=== PATIENT | female | born 1965 | race Caucasian/White ===

== ENCOUNTER 2019-11-03 13:28 | Emergency (ER) | payer SELFPAY, OTHER ==
[2019-11-03] MEDS ORDERED: IPRATROPIUM BROM 0.5MG/2.5ML ONE (14:46)
[2019-11-03] MEDS ORDERED: predniSONE 20 MG TAB ONE (14:47)
[2019-11-03] MEDS ORDERED: ALBUTEROL 2.5 MG/3 ML NEB SOL ONE ×2 (14:47)
[2019-11-03 15:13] LABS: Protime INR 0.92
[2019-11-03 15:17] LABS: Absolute Lymphocytes (CBC) 1.8 K/uL (0.7-4.9); Hematocrit 39.7 % (36.0-45.0); Lymphocytes % 18.7 % (15.3-44.8); MPV 8.5 fL (7.6-11.3); RBC Red Blood Cell Count 4.18 M/uL (3.86-4.86)
[2019-11-03 15:18] LABS: ALT/SGPT 15 U/L (12-78); AST/SGOT 9 U/L (15-37); Albumin 3.7 g/dL (3.4-5.0); Alkaline Phosphatase 52 U/L (45-117); BUN Blood Urea Nitrogen 6 mg/dL (7-18); Bicarbonate 26 mmol/L (21-32); Bilirubin Direct < 0.1 mg/dL (0-0.2); Bilirubin Total 0.3 mg/dL (0.2-1.0); Glucose Level 99 mg/dL (74-106); NT PRO-BNP 114 pg/mL (<125); Potassium 3.9 mmol/L (3.5-5.1); Protein, Total 7.2 g/dL (6.4-8.2); Sodium Level 138 mmol/L (136-145); Troponin (Emerg Dept Use Only) < 0.02 ng/mL (0.0-0.045)
--- NOTE | 2019-11-03 17:03 | EDPHYS ---
Physician Documentation [facility] Name: Fatuma Cadena Age: 54 yrs Sex: Female : 1965 Arrival Date: 11/03/2019 Time: 13:30 Bed 17 Private MD: ED Physician Sudhir Jackson HPI: 11/02 14:10 This 54 yrs old Female presents to ER via Ambulatory with complaints of cp Allergy Symptoms, Dizziness, Breathing Difficulty. 14:10 The patient or guardian reports cough, with no sputum. cp 14:10 Onset: The symptoms/episode began/occurred 3 day(s) ago. Severity of symptoms: in the emergency department the symptoms are unchanged, despite home interventions. Associated signs and symptoms: Pertinent positives: chest pain, sore throat, shortness of breath, Pertinent negatives: diarrhea, fever, vomiting. Patient reports initial symptoms started with nasal congestion, ear fullness 1 week ago. Denies any fevers. Patient reports she works in [employer]. 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 - Social history:: Smoking status: Patient reports the use of cigarette tobacco products, smokes one-half pack cigarettes per day. ROS: 14:15 Constitutional: Negative for body aches, chills, fever, poor PO intake. cp 14:15 Eyes: Negative for injury, pain, redness, and discharge. cp 14:15 ENT: Positive for sinus congestion, sore throat, Negative for drainage from ear(s), ear pain, difficulty swallowing, difficulty handling secretions. 14:15 Respiratory: Positive for cough, with no reported sputum, shortness of breath. 14:15 Abdomen/GI: Negative for abdominal pain, vomiting, diarrhea, constipation. 14:15 Back: Negative for pain at rest, pain with movement. 14:15 : Negative for urinary symptoms. 14:15 Skin: Negative for rash. 14:15 Neuro: Positive for dizziness, Negative for altered mental status, headache, syncope, weakness. 14:15 All other systems are negative. Exam: 14:22 Constitutional: The patient appears in no acute distress, alert, awake, cp non-diaphoretic, non-toxic, well developed, well nourished. 14:22 Head/Face: Normocephalic, atraumatic. cp 14:22 Eyes: Periorbital structures: appear normal, Conjunctiva: normal, no exudate, no injection, Lids and lashes: appear normal, bilaterally. 14:22 ENT: External ear(s): are unremarkable, Ear canal(s): are normal, clear, TM's: dullness, bilaterally, Nose: is normal, Mouth: Lips: moist, Oral mucosa: pink and intact, moist, Posterior pharynx: is normal, airway is patent, no erythema, no exudate. 14:22 Neck: ROM/movement: is normal, is supple, no meningismus, no nuchal rigidity, Lymph nodes: no appreciated lymphadenopathy. 14:22 Chest/axilla: Inspection: normal, Palpation: is normal, no crepitus, no tenderness. 14:22 Cardiovascular: Rate: normal, Rhythm: regular, Heart sounds: murmur, not appreciated, Edema: is not appreciated, JVD: is not appreciated. 14:22 Respiratory: the patient does not display signs of respiratory distress, Respirations: normal, no use of accessory muscles, no retractions, labored breathing, is not present, Breath sounds: decreased breath sounds, that are mild, throughout, stridor, is not appreciated, wheezing: that is mild, is heard diffusely. 14:22 Abdomen/GI: Inspection: abdomen appears normal, Palpation: abdomen is soft and non-tender, in all quadrants. 14:22 Back: pain, is absent, ROM is normal. 14:22 Skin: no rash present. 14:22 Neuro: Orientation: to person, place \T\ time. Mentation: is normal, Cerebellar function: is grossly normal, Motor: moves all fours, strength is normal, Sensation: is normal. 15:00 ECG was reviewed by the Attending Physician. cp Vital Signs: 13:31 BP 126 / 70; Pulse 83; Resp 17 S; Temp 98.1(TE); Pulse Ox 99% on R/A; Weight 63.5 kg ca1 (R); Height 5 ft. 4 in. (162.56 cm) (R); Pain 0/10; 15:10 BP 129 / 68; Pulse 69; Resp 16; Pulse Ox 100% ; lt1 16:27 BP 105 / 61; Pulse 82; Resp 19; Pulse Ox 100% ; lt1 17:30 BP 106 / 56; Pulse 90; Resp 19; Pulse Ox 97% on R/A; vc 13:31 Body Mass Index 24.03 (63.50 kg, 162.56 cm) ca1 MDM: 13:52 Patient medically screened. cp 14:20 Differential Diagnosis: Bronchitis Influenza Asthma Exacerbation Viral Syndrome cp Pneumonia Other COPD. 16:45 Data reviewed: vital signs, nurses notes, lab test result(s), EKG, radiologic studies, cp plain films. Test interpretation: by ED physician or midlevel provider: ECG, chest xray negative for infiltrates and focal pneumonia. 17:00 Counseling: I had a detailed discussion with the patient and/or guardian regarding: the cp historical points, exam findings, and any diagnostic results supporting the discharge/admit diagnosis, lab results, radiology results, the need for outpatient follow up, a family practitioner, to return to the emergency department if symptoms worsen or persist or if there are any questions or concerns that arise at home. 17:00 Response to treatment: the patient's symptoms have markedly improved after treatment, cp and as a result, I will discharge patient, test for coronavirus and recommend 14 day quarantine. 11/02 14:03 Order name: Influenza Screen (a \T\ B); Complete Time: 15:09 11/02 15:09 Interpretation: Reviewed. 11/02 14:03 Order name: Strep; Complete Time: 15:09 11/02 15:09 Interpretation: Reviewed. 11/02 14:03 Order name: CORONAVIRUS (COVID-19) 11/02 14:03 Order name: Basic Metabolic Panel; Complete Time: 15:49 11/02 15:50 Interpretation: Normal except: BUN 6. 11/02 14:03 Order name: CBC with Diff; Complete Time: 15:49 11/02 15:50 Interpretation: Reviewed. 11/02 14:03 Order name: LFT's; Complete Time: 15:49 11/02 15:50 Interpretation: Normal except: AST 9. 11/02 14:03 Order name: Magnesium; Complete Time: 15:49 11/02 14:03 Order name: NT PRO-BNP; Complete Time: 15:49 cp 11/02 14:03 Order name: PT-INR; Complete Time: 15:49 cp 11/02 14:03 Order name: Troponin (emerg Dept Use Only); Complete Time: 15:49 cp 11/02 15:50 Interpretation: Within normal limits. cp 11/02 14:03 Order name: XRAY Chest Pa And Lat (2 Views) cp 11/02 15:08 Order name: Throat Culture EDMS 11/02 14:03 Order name: EKG; Complete Time: 14:04 cp 11/02 14:03 Order name: Cardiac monitoring; Complete Time: 15:02 cp 11/02 14:03 Order name: EKG - Nurse/Tech; Complete Time: 15:02 cp 11/02 14:03 Order name: IV Saline Lock; Complete Time: 15:01 cp 11/02 14:03 Order name: Labs collected and sent; Complete Time: 15: cp 11/02 14:03 Order name: O2 Per Protocol; Complete Time: 15: cp 11/02 14:03 Order name: O2 Sat Monitoring; Complete Time: 15:01 cp EC:00 Rate is 67 beats/min. Rhythm is regular. SD interval is normal. QRS interval is normal. cp QT interval is normal. T waves are Inverted in lead aVL. Interpreted by me. Reviewed by me. Administered Medications: 15:02 Drug: predniSONE 60 mg Route: PO; vc 17:33 Follow up: Response: No adverse reaction; Marked relief of symptoms vc 15:03 Drug: Albuterol 2.5 mg Route: Inhalation; vc 15:03 Drug: AtroVENT Aerosol 0.5 mg Route: Inhalation; vc Disposition: 11/03 07:08 Co-signature as Attending Physician, Sudhir Jackson MD I agree with the assessment and kdr plan of care. Disposition: 11/03/19 17:01 Discharged to Home. Impression: Cough, Other chest pain, Shortness of breath. - Condition is Stable. - Discharge Instructions: Form - Excuse from Work, School, or Physical Activity, Nonspecific Chest Pain, Shortness of Breath, Aspirin and Your Heart, Cough, Adult. - Prescriptions for Prednisone 20 mg Oral Tablet - take 2 tablet by ORAL route once daily for 5 days; 10 tablet. Albuterol Sulfate 90 mcg/actuation - inhale 1-2 puff by INHALATION route every 4-6 hours; 1 Inhaler. - Medication Reconciliation Form, Thank You Letter, Antibiotic Education, Prescription Opioid Use form. - Follow up: Emergency Department; When: As needed; Reason: Worsening of condition. - Problem is new. - Symptoms have improved. Signatures: Dispatcher [employer] EDMS Sudhir Jackson MD MD [facility] Kishor Matos PA PA cp Sarah Starr RN RN [facility] Gabi Pacheco RN RN vc Corrections: (The following items were deleted from the chart) 11/02 18:00 17:01 11/03/2019 17:01 Discharged to Home. Impression: Cough; Other chest pain; vc Shortness of breath. Condition is Stable. Forms are Medication Reconciliation Form, Thank You Letter, Antibiotic Education, Prescription Opioid Use. Follow up: Emergency Department; When: As needed; Reason: Worsening of condition. Problem is new. Symptoms have improved. cp
--- NOTE | 2019-11-03 17:03 | ER ---
Nurse's Notes [facility] Name: Fatuma Cadena Age: 54 yrs Sex: Female : 1965 Arrival Date: 11/03/2019 Time: 13:30 Bed 17 Private MD: Diagnosis: Cough;Other chest pain;Shortness of breath Presentation: 11/02 13:31 Chief complaint: Patient states: Nasal congestion, cough x 1 week. Denies fever. "Was ca1 driving to work when I got dizzy. And for about 3 days now, I feel tightness in my chest". Coronavirus screen: Patient reports a cough. Patient denies shortness of breath or difficulty breathing. Patient denies measured and/or subjective temperature greater than 100.4F. Patient denies travel on a cruise ship or to a country the [facility] currently lists as an affected area. Patient denies contact with known and/or suspected case of COVID-19. Ebola Screen: Patient negative for fever greater than or equal to 101.5 degrees Fahrenheit, and additional compatible Ebola Virus Disease symptoms Patient denies exposure to infectious person. Patient denies travel to an Ebola-affected area in the 21 days before illness onset. No symptoms or risks identified at this time. Initial Sepsis Screen: Does the patient meet any 2 criteria? No. Patient's initial sepsis screen is negative. Does the patient have a suspected source of infection? No. Patient's initial sepsis screen is negative. Risk Assessment: Do you want to hurt yourself or someone else? Patient reports no desire to harm self or others. Onset of symptoms was November 03, 2019. 13:31 Method Of Arrival: Ambulatory ca1 13:31 Acuity: CARMEN 3 ca1 13:40 Note Pt works at a [employer]. ca1 14:02 Acuity: CARMEN 3 iw Triage Assessment: 14:06 General: Appears in no apparent distress. comfortable, Behavior is calm, cooperative, ls4 appropriate for age. 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 - Social history:: Smoking status: Patient reports the use of cigarette tobacco products, smokes one-half pack cigarettes per day. Screenin:57 Abuse screen: Denies threats or abuse. Denies injuries from another. Nutritional ls4 screening: No deficits noted. Tuberculosis screening: No symptoms or risk factors identified. Fall Risk None identified. Assessment: 14:00 Pain: Denies pain. Respiratory: Airway is patent Respiratory effort is even, unlabored, vc Breath sounds are clear. 14:00 General: Appears in no apparent distress. uncomfortable, Behavior is calm, cooperative, vc appropriate for age. Neuro: Level of Consciousness is awake, alert, obeys commands, Oriented to person, place, time, situation, Appropriate for age. Cardiovascular: Capillary refill < 3 seconds Patient's skin is warm and dry. GI: No signs and/or symptoms were reported involving the gastrointestinal system. : No signs and/or symptoms were reported regarding the genitourinary system. Derm: Skin temperature is warm. 15:00 Reassessment: Patient and/or family updated on plan of care and expected duration. Pain vc level reassessed. Patient is alert, oriented x 3, equal unlabored respirations, skin warm/dry/pink. 16:00 Reassessment: No changes from previously documented assessment. Patient and/or family vc updated on plan of care and expected duration. Pain level reassessed. Patient is alert, oriented x 3, equal unlabored respirations, skin warm/dry/pink. 17:00 Reassessment: No changes from previously documented assessment. Patient and/or family vc updated on plan of care and expected duration. Pain level reassessed. Patient is alert, oriented x 3, equal unlabored respirations, skin warm/dry/pink. Patient states feeling better. Patient states symptoms have improved. Vital Signs: 13:31 BP 126 / 70; Pulse 83; Resp 17 S; Temp 98.1(TE); Pulse Ox 99% on R/A; Weight 63.5 kg ca1 (R); Height 5 ft. 4 in. (162.56 cm) (R); Pain 0/10; 15:10 BP 129 / 68; Pulse 69; Resp 16; Pulse Ox 100% ; lt1 16:27 BP 105 / 61; Pulse 82; Resp 19; Pulse Ox 100% ; lt1 17:30 BP 106 / 56; Pulse 90; Resp 19; Pulse Ox 97% on R/A; vc 13:31 Body Mass Index 24.03 (63.50 kg, 162.56 cm) ca1 ED Course: 13:30 Patient arrived in ED. ag5 13:30 Patient has correct armband on for positive identification. Placed in gown. Pulse ox vc on. NIBP on. 13:36 Triage completed. ca1 13:37 Arm band placed on. ca1 13:47 Kishor Matos PA is PHCP. cp 13:47 Sudhir Jackson MD is Attending Physician. cp 14:31 Gabi Pacheco, RN is Primary Nurse. vc 14:31 Primary Nurse role handed off by Gabi Pacheco, RN ls4 14:31 Hannah Ferraro, JOEY is Primary Nurse. ls4 15:00 Missed attempt(s): 22 gauge in right antecubital area. lt1 15:00 Initial lab(s) drawn, by me, sent to lab. EKG done, by ED staff, reviewed by Kishor Matos lt1 PA Flu and/or RSV swab sent to lab. Strep swab sent to lab. Inserted saline lock: 22 gauge in left antecubital area, using aseptic technique. 15:01 Strep Sent. lt1 15:01 Influenza Screen (a \\T\\ B) Sent. lt1 15:01 CORONAVIRUS (COVID-19) Sent. lt1 15:02 Basic Metabolic Panel Sent. lt1 15:02 CBC with Diff Sent. lt1 15:02 LFT's Sent. lt1 15:02 Magnesium Sent. lt1 15:03 NT PRO-BNP Sent. lt1 15:03 PT-INR Sent. lt1 15:03 Troponin (emerg Dept Use Only) Sent. lt1 16:04 XRAY Chest Pa And Lat (2 Views) In Process Unspecified. EDMS 16:08 Health Dept notified COVID test sent to lab/ PUI # [id number]/ lab notified. eb 16:28 Door closed. Lights dimmed. Warm blanket given. Verbal reassurance given. lt1 17:57 No provider procedures requiring assistance completed. IV discontinued, intact, vc bleeding controlled, No redness/swelling at site. Pressure dressing applied. Administered Medications: 15:02 Drug: predniSONE 60 mg Route: PO; vc 17:33 Follow up: Response: No adverse reaction; Marked relief of symptoms vc 15:03 Drug: Albuterol 2.5 mg Route: Inhalation; vc 15:03 Drug: AtroVENT Aerosol 0.5 mg Route: Inhalation; vc Outcome: 17:01 Discharge ordered by . cp 17:57 Discharged to home ambulatory. vc 17:57 Condition: good 17:57 Discharge instructions given to patient, Instructed on discharge instructions, follow up and referral plans. medication usage, self quarantine until results of COVID-19. 18:00 Patient left the ED. vc Signatures: Dispatcher [employer] EDMS Jackie Mills RN RN iw Kishor Matos PA PA Carey Rowe Lisa, RN RN ls4 Sarah Starr RN RN ca1 Belinda Herrera ag5 Isabelle Gonzalez lt1 Gabi Pacheco RN RN vc Corrections: (The following items were deleted from the chart) 13:38 13:31 Pulse 83bpm; Resp 17bpm; Spontaneous; Pulse Ox 99% RA; Temp 98.1F Temporal; 63.5 ca1 kg Reported; Height 5 ft. 4 in. Reported; BMI: 24.0; Pain 0/10; ca1 14:04 13:31 Acuity: CARMEN 4 ca1 ca1
--- NOTE | 2019-11-03 17:38 | RAD REPORT ---
EXAM DESCRIPTION: RAD - Chest Pa And Lat (2 Views) - 11/03/2019 4:05 pm CLINICAL HISTORY: COUGH Chest pain. COMPARISON: No comparisons FINDINGS: The lungs are clear. The heart is normal in size. No displaced fractures. IMPRESSION: No acute or concerning finding suspected.
[2019-11-03 18:46] VITALS: TEMP 97.9
[2019-11-03 18:47] VITALS: BP 146/102; O2SAT 100
--- NOTE | 2019-11-04 11:23 | EKG ---
Test Date: 2019-11-03 Test Time: 14:22:37 [place] Technician: [employer] MEASUREMENT RESULTS: Intervals: Rate: 67 DC: 150 QRSD: 86 QT: 414 QTc: 437 [place]: P: 84 DC: 150 QRS: 74 T: 67 INTERPRETIVE STATEMENTS: Normal sinus rhythm Normal ECG No previous ECG available for comparison Electronically Signed On 11-04-19 11:20:27 CDT by Carl Burden
== END 2019-11-03 18:00 | disposition home or self-care (01) ==
LOC: ER 13:28
DX: R07.89 Other chest pain (principal); R06.02 Shortness of breath; F17.210 Nicotine dependence, cigarettes, uncomplicated; Z88.2 Allergy status to sulfonamides
CPT/HCPCS: 36415; 71046; 80048; 80076; 83735; 83880; 84484; 85025; 85610; 87070; 87081; 87804; 93005; 99284; J7512; U0001

== ENCOUNTER 2020-04-23 21:45 | Emergency (ER) | payer SELFPAY, OTHER ==
[2020-04-23 23:18] LABS: Absolute Lymphocytes (CBC) 2.5 K/uL (0.7-4.9); Basophils % 0.9 % (0-1.3); Hematocrit 37.1 % (36.0-45.0); Lymphocytes % 24.1 % (15.3-44.8); MPV 8.7 fL (7.6-11.3); RBC Red Blood Cell Count 4.01 M/uL (3.86-4.86)
[2020-04-23 23:29] LABS: ALT/SGPT 29 U/L (12-78); AST/SGOT 20 U/L (15-37); Albumin 4.1 g/dL (3.4-5.0); Alkaline Phosphatase 60 U/L (45-117); BUN Blood Urea Nitrogen 5 mg/dL (7-18); Bicarbonate 23 mmol/L (21-32); Bilirubin Direct 0.1 mg/dL (0-0.2); Bilirubin Total 0.4 mg/dL (0.2-1.0); CKMB Creatine Kinase MB < 1.0 ng/mL (0.3-3.6); Creatine Phosphokinase 82 U/L (26-192); Glucose Level 82 mg/dL (74-106); Lipase 143 U/L (73-393); NT PRO-BNP 43 pg/mL (<125); Potassium 3.8 mmol/L (3.5-5.1); Protein, Total 7.5 g/dL (6.4-8.2); Sodium Level 136 mmol/L (136-145); Troponin (Emerg Dept Use Only) < 0.02 ng/mL (0.0-0.045)
[2020-04-23 23:35] LABS: Protime INR 0.95
[2020-04-23] MEDS ORDERED: ACETAMINOPHEN 500 MG TAB ONE (23:36)
[2020-04-23] MEDS ORDERED: NA CHLORIDE 0.9% 1,000 ML ONE (23:45)
[2020-04-23] MEDS ORDERED: IPRATROPIUM BROM 0.5MG/2.5ML ONE ×2 (23:50→23:56)
[2020-04-23] MEDS ORDERED: ALBUTEROL 2.5 MG/3 ML NEB SOL ONE (23:50)
[2020-04-24 00:25] LABS: Urine Blood TRACE (NEG); Urine Glucose NEGATIVE (NEG); Urine Protein NEGATIVE (NEG); Urine Specific Gravity 1.005 (1.005-1.030); Urine pH 5.5 (5.0-7.0)
--- NOTE | 2020-04-24 00:43 | EDPHYS ---
Physician Documentation [facility] Name: Fatuma Cadena Age: 55 yrs Sex: Female : 1965 Arrival Date: 04/23/2020 Time: 21:47 Bed 6 Private MD: ED Physician Raymon Meza HPI: 04/23 23:00 This 55 yrs old Female presents to ER via Ambulatory with complaints of Sinus mh7 Congestion, Breathing Difficulty, Nausea/Vomiting. 23:00 The patient has shortness of breath during heavy activity. Onset: The symptoms/episode mh7 began/occurred today. Duration: The symptoms are intermittent, with no pattern. The patient's shortness of breath is aggravated by coughing, exertion, is alleviated by nothing. Associated signs and symptoms:. 23:02 Associated signs and symptoms: Pertinent positives: non-productive cough, nausea, mh7 vomiting, sore throat, sinus pain, Pertinent negatives: chest pain, diaphoresis, dizziness, fever, hemoptysis, loss of consciousness, numbness in extremities, visual changes. Severity of symptoms: At their worst the symptoms were moderate today, in the emergency department the symptoms have improved moderately. Patient states that she started to have sinus pain to right cheek and sore throat yesterday. Today she also started to have a non productive cough with some SOB. She also had an episode of nausea and vomiting. She denies any fever, chest pain, abdominal pain, dizziness, numbness/tingling, weakness, sick contacts, or recent travel. 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 - Social history:: Smoking status: Patient denies any tobacco usage or history of. ROS: 23:02 Constitutional: Negative for fever, chills, and weight loss, Eyes: Negative for injury, mh7 pain, redness, and discharge, Neck: Negative for injury, pain, and swelling, Cardiovascular: Negative for chest pain, palpitations, and edema, Back: Negative for injury and pain, : Negative for injury, bleeding, discharge, and swelling, MS/Extremity: Negative for injury and deformity, Skin: Negative for injury, rash, and discoloration, Neuro: Negative for headache, weakness, numbness, tingling, and seizure, Psych: Negative for depression, anxiety, suicide ideation, homicidal ideation, and hallucinations, Allergy/Immunology: Negative for hives, rash, and allergies, Endocrine: Negative for neck swelling, polydipsia, polyuria, polyphagia, and marked weight changes, Hematologic/Lymphatic: Negative for swollen nodes, abnormal bleeding, and unusual bruising. Exam: 23:02 Constitutional: This is a well developed, well nourished patient who is awake, alert, mh7 and in no acute distress. 23:02 Eyes: Pupils equal round and reactive to light, extra-ocular motions intact. Lids and lashes normal. Conjunctiva and sclera are non-icteric and not injected. Cornea within normal limits. Periorbital areas with no swelling, redness, or edema. ENT: Nares patent. No nasal discharge, no septal abnormalities noted. Tympanic membranes are normal and external auditory canals are clear. Oropharynx with no redness, swelling, or masses, exudates, or evidence of obstruction, uvula midline. Mucous membranes moist. Neck: Trachea midline, no thyromegaly or masses palpated, and no cervical lymphadenopathy. Supple, full range of motion without nuchal rigidity, or vertebral point tenderness. No Meningismus. Chest/axilla: Normal chest wall appearance and motion. Nontender with no deformity. No lesions are appreciated. Cardiovascular: Regular rate and rhythm with a normal S1 and S2. No gallops, murmurs, or rubs. Normal PMI, no JVD. No pulse deficits. Respiratory: Lungs have equal breath sounds bilaterally, clear to auscultation and percussion. No rales, rhonchi or wheezes noted. No increased work of breathing, no retractions or nasal flaring. Abdomen/GI: Soft, non-tender, with normal bowel sounds. No distension or tympany. No guarding or rebound. No evidence of tenderness throughout. Back: No spinal tenderness. No costovertebral tenderness. Full range of motion. Skin: Warm, dry with normal turgor. Normal color with no rashes, no lesions, and no evidence of cellulitis. MS/ Extremity: Pulses equal, no cyanosis. Neurovascular intact. Full, normal range of motion. Neuro: Awake and alert, GCS 15, oriented to person, place, time, and situation. Cranial nerves II-XII grossly intact. Motor strength 5/5 in all extremities. Sensory grossly intact. Cerebellar exam normal. Normal gait. Psych: Awake, alert, with orientation to person, place and time. Behavior, mood, and affect are within normal limits. 23:02 Head/face: Sinus tenderness, that is moderate, is located over the right maxillary sinus and left maxillary sinus. 23:09 ECG was reviewed by the Attending Physician. [facility] Vital Signs: 21:58 BP 136 / 80; Pulse 76; Resp 18; Temp 98.1(O); Pulse Ox 100% on R/A; mw2 22:15 BP 135 / 77; Pulse 84; Resp 19; Pulse Ox 100% ; ea 23:30 BP 105 / 63; Pulse 65; Resp 18; Pulse Ox 98% on R/A; ea 04/24 00:38 BP 121 / 64; Pulse 90; Resp 18; Pulse Ox 100% ; ds4 00:43 BP 121 / 64; Pulse 90; Resp 18; Pulse Ox 99% ; ea MDM: 04/23 22:32 Patient medically screened. [facility] 04/24 00:40 Differential diagnosis: Anemia Anxiety Reaction asthma, Bronchitis CHF exacerbation, [facility] Chronic Obstructive Pulmonary Disease Myocardial Infarction pneumonia, Pneumothorax Psychogenic pulmonary edema, Pulmonary Embolism reactive airway disease. Data reviewed: vital signs, nurses notes, lab test result(s), cardiac enzymes, CBC, electrolytes, urinalysis, EKG, radiologic studies, plain films. Data interpreted: Pulse oximetry: on room air is 98 %. Interpretation: normal. Counseling: I had a detailed discussion with the patient and/or guardian regarding: the historical points, exam findings, and any diagnostic results supporting the discharge/admit diagnosis, lab results, radiology results, the need for outpatient follow up, to return to the emergency department if symptoms worsen or persist or if there are any questions or concerns that arise at home. Response to treatment: the patient's symptoms have resolved after treatment, the patient's blood pressure is in an acceptable range, mental status has returned to baseline, the patient no longer shows bradycardia, the patient is not short of breath, the patient is not tachycardic, the patient's pain is gone, the patient's temperature has normalized. 09/14 22:26 Order name: Blood Culture Adult (2) 04/23 22:26 Order name: BMP; Complete Time: 23:30 04/23 22:26 Order name: CBC with Diff; Complete Time: 23:25 04/23 22:26 Order name: Ckmb; Complete Time: 23:30 04/23 22:26 Order name: CPK; Complete Time: 23:30 04/23 22:26 Order name: D-Dimer; Complete Time: 23:45 04/23 22:26 Order name: Hepatic Function; Complete Time: 23:30 04/23 22:26 Order name: Lipase; Complete Time: 23:30 04/23 22:26 Order name: Magnesium; Complete Time: :30 04/23 22:26 Order name: NT PRO-BNP; Complete Time: 23:30 04/23 22:26 Order name: PT-INR; Complete Time: 23:45 04/23 22:26 Order name: Ptt, Activated; Complete Time: :45 04/23 22:26 Order name: Troponin (emerg Dept Use Only); Complete Time: 23:30 04/23 22:32 Order name: Influenza Screen (a \T\ B); Complete Time: 00:16 [facility] 04/23 22:26 Order name: XRAY CXR (1 view) 04/23 22:26 Order name: EKG; Complete Time: 22:27 04/23 22:26 Order name: Cardiac monitoring; Complete Time: 23:10 04/23 22:26 Order name: EKG - Nurse/Tech; Complete Time: 23:10 04/23 22:26 Order name: IV Saline Lock; Complete Time: 23:10 04/23 22:26 Order name: Labs collected and sent; Complete Time: 23:10 04/23 22:26 Order name: O2 Per Protocol; Complete Time: 22:53 04/23 22:26 Order name: O2 Sat Monitoring; Complete Time: 22:53 04/23 22:32 Order name: Rapid Strep; Complete Time: 00:16 [facility] 04/23 23:09 Order name: Urine Dipstick-Ancillary (obtain specimen); Complete Time: 23:49 04/23 23:51 Order name: Urine Dipstick--Ancillary (enter results); Complete Time: 00:27 ds4 04/24 00:15 Order name: Throat Culture EDMS EC/14 23:09 Rate is 68 beats/min. Rhythm is regular, Normal Sinus Rhythm. QRS [place] is Normal. [place] mh7 interval is normal. QRS interval is normal. QT interval is normal. No Q waves. T waves are Normal. No ST changes noted. Clinical impression: Normal ECG. Administered Medications: 23:28 Drug: Tylenol 1000 mg Route: PO; ll2 23:28 Follow up: Response: No adverse reaction ll2 23:53 CANCELLED (Duplicate Order): AtroVENT Aerosol 0.5 mg Inhalation once ll2 23:53 Drug: Albuterol - atroVENT (3:1) (2.5 mg - 0.5 mg) 3 ml Route: Nebulizer; ll2 23:53 Follow up: Response: No adverse reaction ll2 Disposition: 04/24/20 00:42 Discharged to Home. Impression: Sinusitis, Bronchitis. - Condition is Stable. - Discharge Instructions: Sinusitis, Adult, [id number], Acute Bronchitis, [id number]. - Prescriptions for Zithromax Z- Ganesh 250 mg Oral Tablet - take 1 tablet by ORAL route as directed for 5 days Day 1 - take two (2) tablets one time. Day 2, 3, 4 , 5 take one (1) tablet once daily.; 6 tablet. Prednisone 20 mg Oral Tablet - take 2 tablet by ORAL route once daily for 5 days; 10 tablet. Albuterol Sulfate 90 mcg/actuation - inhale 1-2 puff by INHALATION route every 4-6 hours; 1 Inhaler. - Medication Reconciliation Form, Thank You Letter, Antibiotic Education, Prescription Opioid Use form. - Follow up: Private Physician; When: 1 - 2 days; Reason: Worsening of condition, Recheck today's complaints, Continuance of care, Re-evaluation by your physician. - Problem is new. - Symptoms have improved. Signatures: Dispatcher [employer] EDWI Polo Vance RN RN Ayah Morales RN Purvi Gonzalez ea, RN RN 2 Raymon Meza MD MD 7 Corrections: (The following items were deleted from the chart) 23:53 23:52 AtroVENT Aerosol 0.5 mg Inhalation once ordered. ll2 ll2 04/24 00:57 00:42 04/24/2020 00:42 Discharged to Home. Impression: Sinusitis; Bronchitis. Condition ea is Stable. Forms are Medication Reconciliation Form, Thank You Letter, Antibiotic Education, Prescription Opioid Use. Follow up: Private Physician; When: 1 - 2 days; Reason: Worsening of condition, Recheck today's complaints, Continuance of care, Re-evaluation by your physician. Problem is new. Symptoms have improved. mh7
--- NOTE | 2020-04-24 00:43 | ER ---
Nurse's Notes [facility] Name: Fatuma Cadena Age: 55 yrs Sex: Female : 1965 Arrival Date: 04/23/2020 Time: 21:47 Bed 6 Private MD: Diagnosis: Sinusitis;Bronchitis Presentation: 04/23 22:08 Acuity: CARMEN 3 sg 22:29 Chief complaint: Patient states: see triage assessment. Coronavirus screen: Client ll2 denies travel out of the [place] in the last 14 days. congestion, cough unrelated to allergies, difficulty breathing, headache, shortness of breath, sore throat, vomiting. Ebola Screen: Patient negative for fever greater than or equal to 101.5 degrees Fahrenheit, and additional compatible Ebola Virus Disease symptoms. Initial Sepsis Screen: Does the patient meet any 2 criteria? No. Patient's initial sepsis screen is negative. Does the patient have a suspected source of infection? No. Patient's initial sepsis screen is negative. Risk Assessment: Do you want to hurt yourself or someone else? Patient reports no desire to harm self or others. Onset of symptoms was April 22, 2020. 22:29 Method Of Arrival: Ambulatory ll2 Triage Assessment: 22:23 General: Appears in no apparent distress. Behavior is calm, cooperative, appropriate ll2 for age. Pain: Complains of pain in right cheek Pain currently is 7 out of 10 on a pain scale. Quality of pain is described as pressure, Pain began 1 day ago. Is continuous. EENT: Reports nasal congestion pain sore throat and ears. Neuro: Level of Consciousness is awake, alert, obeys commands, Oriented to person, place, time, situation. Neuro: Reports dizziness. Cardiovascular: Capillary refill < 3 seconds Patient's skin is warm and dry. Respiratory: Reports shortness of breath cough that is Onset: The symptoms/episode began/occurred yesterday, the patient has moderate shortness of breath. GI: Reports nausea, vomiting, since since yesterday. : No signs and/or symptoms were reported regarding the genitourinary system. Derm: Skin is intact, is healthy with good turgor, Skin is dry, Skin is pink, warm \T\ dry. Skin temperature is warm. Musculoskeletal: Circulation, motion, and sensation intact. Range of motion: intact in all extremities. 22:26 General: pt states she works at [employer], none of her pts are covid ll2 positive currently. reports having heavy pressure in her sinus cavity and feeling like its in her lungs. states she has vomited once today, but feels nauseated currently. has mild pain in her throat and ears. . 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 - Social history:: Smoking status: Patient denies any tobacco usage or history of. Screenin:28 Abuse screen: Denies threats or abuse. Nutritional screening: No deficits noted. ll2 Tuberculosis screening: No symptoms or risk factors identified. 04/24 00:16 Fall Risk None identified. ea Assessment: 04/23 22:28 General: see triage assessment. Cardiovascular: Rhythm is regular. Respiratory: Airway ll2 is patent Respiratory effort is even, unlabored, Respiratory pattern is regular, symmetrical, 04/24 00:04 Reassessment: Patient and/or family updated on plan of care and expected duration. Pain ea level reassessed. Patient is alert, oriented x 3, equal unlabored respirations, skin warm/dry/pink. 00:56 Reassessment: Patient and/or family updated on plan of care and expected duration. Pain ea level reassessed. Patient is alert, oriented x 3, equal unlabored respirations, skin warm/dry/pink. Discharge instruction given to patient, verbalized the understanding of instruction. Pt left ED ambulatory tolerating well. Vital Signs: 04/23 21:58 BP 136 / 80; Pulse 76; Resp 18; Temp 98.1(O); Pulse Ox 100% on R/A; mw2 22:15 BP 135 / 77; Pulse 84; Resp 19; Pulse Ox 100% ; ea 23:30 BP 105 / 63; Pulse 65; Resp 18; Pulse Ox 98% on R/A; ea 04/24 00:38 BP 121 / 64; Pulse 90; Resp 18; Pulse Ox 100% ; ds4 00:43 BP 121 / 64; Pulse 90; Resp 18; Pulse Ox 99% ; ea ED Course: 04/23 21:47 Patient arrived in ED. bp1 22:00 Arm band placed on. sg 22:03 Raymon Meza MD is Attending Physician. 7 22:08 Triage completed. sg 22:23 Purvi Wells, RN is Primary Nurse. ll2 22:30 Patient has correct armband on for positive identification. Bed in low position. Call ll2 light in reach. Side rails up X 1. Pulse ox on. NIBP on. 22:55 XRAY CXR (1 view) In Process Unspecified. EDMS 23:00 Second set of blood cultures drawn by ED staff, Flu and/or RSV swab sent to lab. Strep sg swab sent to lab. 23:10 Ptt, Activated Sent. ds4 23:10 EKG done, by ED staff, reviewed by Raymon Meza MD. 4 23:52 Urine Dipstick--Ancillary (enter results) Sent. ll2 04/24 00:44 No provider procedures requiring assistance completed. ea 00:54 IV discontinued, intact, bleeding controlled, No redness/swelling at site. Pressure ea dressing applied. Administered Medications: 04/23 23:28 Drug: Tylenol 1000 mg Route: PO; ll2 23:28 Follow up: Response: No adverse reaction ll2 23:53 CANCELLED (Duplicate Order): AtroVENT Aerosol 0.5 mg Inhalation once ll2 23:53 Drug: Albuterol - atroVENT (3:1) (2.5 mg - 0.5 mg) 3 ml Route: Nebulizer; ll2 23:53 Follow up: Response: No adverse reaction ll2 Outcome: 04/24 00:42 Discharge ordered by . [facility] 00:56 Discharged to home ambulatory. ea 00:56 Condition: stable 00:56 Discharge instructions given to patient, Instructed on discharge instructions, follow up and referral plans. medication usage, Demonstrated understanding of instructions, follow-up care, medications, Prescriptions given X 3. 00:57 Patient left the ED. ea Signatures: Dispatcher [employer] EDMS Polo Vance, RN Alexsander Fischer ds4 Ayah Morales RN RN Elijah Guthrie mw2 Purvi Wells, RN RN ll2 Graciela Wright Maurice, MD MD [facility]
[2020-04-24 01:57] VITALS: TEMP 98.1
[2020-04-24 02:01] VITALS: BP 121/64
[2020-04-24 02:02] VITALS: O2SAT 99
--- NOTE | 2020-04-24 15:35 | RAD REPORT ---
EXAM DESCRIPTION: RAD - Chest Single View - 04/23/2020 10:58 pm CLINICAL HISTORY: CONGESTION COMPARISON: None. FINDINGS: Single frontal radiograph view of the chest. Cardiomediastinal silhouette: Normal size and contour. Lungs: No consolidation, pneumothorax, or pleural effusion. Bones: No acute osseous abnormality. Upper abdomen: No abnormality identified. IMPRESSION: 1. No acute pulmonary process identified. Electronically signed by: Dutch Handley 04/23/2020 11:53 PM CDT Due to temporary technical issues with the PACS/Fluency reporting system, reports are being signed by the in house radiologist without review as a courtesy to ensure prompt reporting. The interpreting r adiologist is fully responsible for the content of the report.
--- NOTE | 2020-04-25 05:54 | EKG ---
Test Date: 2020-04-23 Test Time: 23:01:00 Nurse Ortho: SAYDA MEASUREMENT RESULTS: Intervals: Rate: 68 DC: 144 QRSD: 80 QT: 418 QTc: 444 [place]: P: 77 DC: 144 QRS: 67 T: 61 INTERPRETIVE STATEMENTS: Normal sinus rhythm Normal ECG Compared to ECG 11/03/2019 14:22:37 No significant changes Electronically Signed On 04-25-20 05:50:26 CDT by Carl Burden
== END 2020-04-24 00:57 | disposition home or self-care (01) ==
LOC: ER 21:45
DX: J40 Bronchitis, not specified as acute or chronic (principal); J32.9 Chronic sinusitis, unspecified; Z88.2 Allergy status to sulfonamides
CPT/HCPCS: 36415; 71045; 80048; 80076; 81003; 82550; 82553; 83690; 83735; 83880; 84484; 85025; 85379; 85610; 85730; 87040; 87070; 87081; 87804; 93005; 99284; J7030

== ENCOUNTER 2022-09-23 04:44 | Emergency (ER) | payer SELFPAY ==
[2022-09-23] MEDS ORDERED: ONDANSETRON 4 MG/2 ML VIAL ONE (05:35)
[2022-09-23] MEDS ORDERED: MECLIZINE HCL 12.5 MG TAB ONE (05:35)
[2022-09-23] MEDS ORDERED: NA CHLORIDE 0.9% 1,000 ML ONE (05:35)
[2022-09-23] MEDS ORDERED: NA CHLORIDE 0.9% 500 ML ONE (05:36)
[2022-09-23 05:53] LABS: Lymphocytes % 40.1 % (15.3-44.8); MCV 90.1 fL (80-100); MPV 8.5 fL (7.6-11.3); RBC Red Blood Cell Count 4.99 M/uL (3.86-4.86)
[2022-09-23 05:54] LABS: Protime INR 0.93
[2022-09-23 06:05] LABS: ALT/SGPT 27 U/L (13-56); AST/SGOT 24 U/L (15-37); Albumin 3.6 g/dL (3.4-5.0); Alkaline Phosphatase 79 U/L (45-117); BUN Blood Urea Nitrogen 9 mg/dL (7-18); Bicarbonate 25 mmol/L (21-32); Bilirubin Total 0.3 mg/dL (0.2-1.0); Glomerular Filtration Rate 90 ml/min (=/>90); Glucose Level 99 mg/dL (74-106); Lipase 292 U/L (73-393); NT PRO-BNP 38 pg/mL (<125); Potassium 3.6 mmol/L (3.5-5.1); Protein, Total 7.9 g/dL (6.4-8.2); Sodium Level 131 mmol/L (136-145); Troponin High Sensitivity 6.5 pg/mL (<58.9)
[2022-09-23 06:06] LABS: Bilirubin Direct < 0.1 mg/dL (0-0.2)
[2022-09-23 06:23] LABS: Urine Blood 2+ (Negative); Urine Glucose Negative (Negative); Urine Protein Trace (Negative); Urine Specific Gravity 1.015 (1.005-1.030)
[2022-09-23 06:26] LABS: Urine Bacteria None Seen /HPF (<20); Urine Mucus Slight /HPF (None Seen); Urine RBC <5 /HPF (None Seen)
--- NOTE | 2022-09-23 06:32 | ER ---
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 i started feeling congested about a week ago and started taking cough medicine and antibiotics. now since Thursday i have had nausea, vomiting and diarrhea. i have taken pepto but its not giving me any relief. i also am having frequent headaches and dizziness. Coronavirus screen: Client denies travel out of the [place] in the last 14 days. Client presents with at least one sign or symptom that may indicate coronavirus-19. Standard/surgical mask placed on the client. Ebola Screen: No symptoms or risks identified at this time. Initial Sepsis Screen: Does the patient meet any 2 criteria? No. Patient's initial sepsis screen is negative. Does the patient have a suspected source of infection? No. Patient's initial sepsis screen is negative. Risk Assessment: Do you want to hurt yourself or someone else? Patient reports no desire to harm self or others. Onset of symptoms is unknown. 05:01 Method Of Arrival: Ambulatory lg3 05:01 Acuity: CARMEN 3 lg3 Triage Assessment: 05:04 General: Appears in no apparent distress. comfortable, Behavior is calm, cooperative. lg3 Pain: Complains of pain in left upper quadrant and left lower quadrant Pain currently is 3 out of 10 on a pain scale. Also complains of nausea. EENT: No deficits noted. No signs and/or symptoms were reported regarding the EENT system. Neuro: No deficits noted. Ray Agitation-Sedation Scale (RASS): 0 - Alert and Calm Level of Consciousness is awake, alert, obeys commands, Oriented to person, place, time, situation. Cardiovascular: No deficits noted. Denies chest pain, shortness of breath, Capillary refill < 3 seconds Clubbing of nail beds is absent JVD is absent Patient's skin is warm and dry. Respiratory: No deficits noted. Airway is patent Trachea midline Respiratory effort is even, unlabored, Respiratory pattern is regular, symmetrical. GI: Abdomen is flat, non-distended, Bowel sounds present X 4 quads. Reports lower abdominal pain, upper abdominal pain, cramping, diarrhea, intolerance of fluids, intolerance of food, nausea, vomiting. : No deficits noted. No signs and/or symptoms were reported regarding the genitourinary system. Derm: No deficits noted. No signs and/or symptoms reported regarding the dermatologic system. Skin is intact, is healthy with good turgor, Skin is dry, Skin is normal, Skin temperature is warm. Musculoskeletal: No deficits noted. No signs and/or symptoms reported regarding the musculoskeletal system. Circulation, motion, and sensation intact. Range of motion: intact in all extremities. 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 Pneumococcal vaccine is not up to date, patient has never been vaccinated Flu vaccine is not up to date. - Social history:: Smoking status: Patient reports the use of cigarette tobacco products, smokes one-half pack cigarettes per day, Patient/guardian denies using alcohol, street drugs. Screenin:38 [facility] ED Fall Risk Assessment (Adult) History of falling in the last 3 months, vc1 including since admission No falls in past 3 months (0 pts) Confusion or Disorientation No (0 pts) Intoxicated or Sedated No (0 pts) Impaired Gait No (0 pts) Mobility Assist Device Used No (0 pt) Altered Elimination No (0 pt) Score/Fall Risk Level 0 - 2 = Low Risk Oriented to surroundings, Maintained a safe environment, Educated pt \T\ family on fall prevention, incl call for assistance when getting out of bed. Abuse screen: Denies threats or abuse. Nutritional screening: No deficits noted. Tuberculosis screening: No symptoms or risk factors identified. Assessment: 05:00 Reassessment: See triage assessment. vc1 06:36 GI: Reports intolerance of fluids, intolerance of food, nausea, vomiting. vc1 06:39 Reassessment: Patient and/or family updated on plan of care and expected duration. Pain vc1 level reassessed. Patient states feeling better. Patient states symptoms have improved. GI: Abdomen is flat, non-distended, Bowel sounds present X 4 quads. Vital Signs: 05:01 BP 111 / 76; Pulse 89; Resp 18 S; Temp 98.1(O); Pulse Ox 98% on R/A; Weight 63.5 kg lg3 (R); Height 5 ft. 4 in. (162.56 cm) (R); Pain 0/10; 05:01 Body Mass Index 24.03 (63.50 kg, 162.56 cm) lg3 Lana Coma Score: 06:08 Eye Response: spontaneous(4). Verbal Response: oriented(5). Motor Response: obeys pati commands(6). Total: 15. NIH Stroke Scale Scores: 06:08 NIHSS Score: 0 [facility] ED Course: 04:47 Patient arrived in ED. [email or web address] 04:47 Kishor West MD is Attending Physician. pati 05:04 Triage completed. lg3 05:04 Arm band placed on right wrist. lg3 05:06 Gabi Pacheco, RN is Primary Nurse. vc1 05:38 Patient has correct armband on for positive identification. Bed in low position. Call vc1 light in reach. Client placed on continuous cardiac and pulse oximetry monitoring. NIBP monitoring applied. 06:14 COVID-19/FLU A+B Sent. ll3 06:14 Lipase Sent. ll3 06:14 Basic Metabolic Panel Sent. ll3 06:14 CBC with Diff Sent. ll3 06:14 LFT's Sent. ll3 06:14 Magnesium Sent. ll3 06:14 NT PRO-BNP Sent. ll3 06:14 PT-INR Sent. ll3 06:14 Troponin HS Sent. ll3 06:24 Urine Microscopic Only Sent. lg3 06:32 Ramone Doan DO is Referral Physician. pati 07:01 No provider procedures requiring assistance completed. IV discontinued, intact, vc1 bleeding controlled, No redness/swelling at site. Pressure dressing applied. Administered Medications: 06:00 Drug: NS 0.9% 500 ml Route: IV; Rate: bolus; Site: right antecubital; vc1 06:00 Drug: NS 0.9% 1000 ml Route: IV; Rate: 125 ml/hr; Site: right antecubital; vc1 06:00 Drug: Zofran (Ondansetron) 8 mg Route: IVP; Site: right antecubital; vc1 06:00 Drug: Meclizine 50 mg Route: PO; vc1 07:02 Drug: Decadron - Dexamethasone 10 mg Route: IVP; Site: right antecubital; ll3 07:03 Drug: Pepcid (famotidine) 40 mg Route: PO; ll3 07:03 Drug: Aspirin Chewable Tablet 81 mg Route: PO; ll3 Medication: 05:38 VIS not applicable for this client. vc1 Outcome: 06:32 Discharge ordered by . pati 07:06 Discharged to home ambulatory, with family. ll3 07:06 Condition: stable 07:06 Discharge instructions given to patient, family, Instructed on discharge instructions, follow up and referral plans. medication usage, Demonstrated understanding of instructions, follow-up care, medications, Prescriptions given X 5 07:07 Patient left the ED. ll3 NIH Stroke Scale - NIH Stroke Score Date: 09/23/2022 Time: 06:08 Total Score = 0 1a. Level of Consciousness (LOC) - 0(Alert) 1b. Level of Consciousness (LOC) (Month \T\ Age) - 0(Both) 1c. LOC Commands (Open \T\ Closes Eyes/Improvement Analyst) - 0(Both) 2. Best Gaze (Lateral Gaze Paresis) - 0(Normal) 3. Visual Field Loss - 0(No visual loss) 4. Facial Palsy - 0(Normal) 5a. Left Arm: Motor (10-second hold) - 0(No drift) 5b. Right Arm: Motor (10-second hold) - 0(No drift) 6a. Left Leg: Motor (5-second hold - always test supine) - 0(No drift) 6b. Right Leg: Motor (5-second hold - always test supine) - 0(No drift) 7. Limb Ataxia (finger/nose \T\ heel/wolff - test with eyes open) - 0(Absent) 8. Sensory Loss (pinprick arms/legs/face) - 0(Normal) 9. Best Language: Aphasia (description/naming/reading) - 0(No aphasia) 10. Dysarthria (speech clarity - read or repeat words) - 0(Normal) 11. Extinction and Inattention (visual/tactile/auditory/spatial/personal) - 0(No abnormality) Initials: pati Signatures: Kishor West MD MD cha Gibson, Lacie RN RN lg3 Mary Cortez6 Samuel Bee RN RN ll3 Gabi Pacheco RN RN vc1
--- NOTE | 2022-09-23 06:32 | EDPHYS ---
Physician Documentation [facility] Name: Fatuma Cadena Age: 57 yrs Sex: Female : 1965 Arrival Date: 09/23/2022 Time: 04:47 Bed 3 Private MD: ED Physician Kishor West HPI: 09/23 06:00 This 57 yrs old Female presents to ER via Ambulatory with complaints of pati Nausea/Vomiting, Dizziness. 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 Pneumococcal vaccine is not up to date, patient has never been vaccinated Flu vaccine is not up to date. - Social history:: Smoking status: Patient reports the use of cigarette tobacco products, smokes one-half pack cigarettes per day, Patient/guardian denies using alcohol, street drugs. ROS: 06:01 Constitutional: Negative for fever, chills, and weight loss, Eyes: Negative for injury, pati pain, redness, and discharge, ENT: Negative for injury, pain, and discharge, Neck: Negative for injury, pain, and swelling, Cardiovascular: Negative for chest pain, palpitations, and edema, Respiratory: Negative for shortness of breath, cough, wheezing, and pleuritic chest pain, Back: Negative for injury and pain, : Negative for injury, bleeding, discharge, and swelling, MS/Extremity: Negative for injury and deformity, Skin: Negative for injury, rash, and discoloration, Neuro: Negative for headache, weakness, numbness, tingling, and seizure, Psych: Negative for depression, anxiety, suicide ideation, homicidal ideation, and hallucinations, Allergy/Immunology: Negative for hives, rash, and allergies, Endocrine: Negative for neck swelling, polydipsia, polyuria, polyphagia, and marked weight changes, Hematologic/Lymphatic: Negative for swollen nodes, abnormal bleeding, and unusual bruising. 06:01 Abdomen/GI: Positive for nausea and vomiting. Exam: 05:25 ECG was reviewed by the Attending Physician. pati 06:07 Musculoskeletal/extremity: ROM: intact in all extremities, full active range of motion, pati full passive range of motion, Circulation is intact in all extremities. Compartment Syndrome exam of affected extremity: is normal. Weight bearing: able to fully bear weight, without difficulty, DVT Exam: No signs of deep vein thrombosis. no pain, no swelling, no tenderness, negative Homans' sign noted on exam, no appreciated bluish discoloration, no erythema, no increased warmth. 06:08 Constitutional: This is a well developed, well nourished patient who is awake, alert, pati and in no acute distress. Head/Face: Normocephalic, atraumatic. Eyes: Pupils equal round and reactive to light, extra-ocular motions intact. Lids and lashes normal. Conjunctiva and sclera are non-icteric and not injected. Cornea within normal limits. Periorbital areas with no swelling, redness, or edema. ENT: Nares patent. No nasal discharge, no septal abnormalities noted. Tympanic membranes are normal and external auditory canals are clear. Oropharynx with no redness, swelling, or masses, exudates, or evidence of obstruction, uvula midline. Mucous membranes moist. Neck: Trachea midline, no thyromegaly or masses palpated, and no cervical lymphadenopathy. Supple, full range of motion without nuchal rigidity, or vertebral point tenderness. No Meningismus. Chest/axilla: Normal chest wall appearance and motion. Nontender with no deformity. No lesions are appreciated. Cardiovascular: Regular rate and rhythm with a normal S1 and S2. No gallops, murmurs, or rubs. Normal PMI, no JVD. No pulse deficits. Respiratory: Lungs have equal breath sounds bilaterally, clear to auscultation and percussion. No rales, rhonchi or wheezes noted. No increased work of breathing, no retractions or nasal flaring. Abdomen/GI: Soft, non-tender, with normal bowel sounds. No distension or tympany. No guarding or rebound. No evidence of tenderness throughout. Back: No spinal tenderness. No costovertebral tenderness. Full range of motion. Skin: Warm, dry with normal turgor. Normal color with no rashes, no lesions, and no evidence of cellulitis. MS/ Extremity: Pulses equal, no cyanosis. Neurovascular intact. Full, normal range of motion. Neuro: Awake and alert, GCS 15, oriented to person, place, time, and situation. Cranial nerves II-XII grossly intact. Motor strength 5/5 in all extremities. Sensory grossly intact. Cerebellar exam normal. Normal gait. Psych: Awake, alert, with orientation to person, place and time. Behavior, mood, and affect are within normal limits. Vital Signs: 05:01 BP 111 / 76; Pulse 89; Resp 18 S; Temp 98.1(O); Pulse Ox 98% on R/A; Weight 63.5 kg lg3 (R); Height 5 ft. 4 in. (162.56 cm) (R); Pain 0/10; 05:01 Body Mass Index 24.03 (63.50 kg, 162.56 cm) lg3 NIH Stroke Scale Scores: 06:08 NIHSS Score: 0 pati Micanopy Coma Score: 06:08 Eye Response: spontaneous(4). Verbal Response: oriented(5). Motor Response: obeys pati commands(6). Total: 15. MDM: 04:47 Patient medically screened. [facility] 06:02 Differential diagnosis: Nonspecific abd pain, gastritis, pancreatitis, viral pati gastroenteritis, gastroenteritis. Data reviewed: vital signs, nurses notes, lab test result(s), EKG, radiologic studies. Consideration of Admission/Observation Escalation of care including admission/observation considered. I considered the following discharge prescriptions or medication management in the emergency department Medications were administered in the Emergency Department. See MAR. Test considered but Not performed: CT: ct abd pelvis. Care significantly affected by the following chronic conditions: none. 09/23 04:49 Order name: Basic Metabolic Panel pati 09/23 04:49 Order name: CBC with Diff 09/23 04:49 Order name: LFT's 09/23 04:49 Order name: Magnesium 09/23 04:49 Order name: NT PRO-BNP 09/23 04:49 Order name: PT-INR 09/23 04:49 Order name: Troponin HS pati 09/23 04:52 Order name: Lipase 09/23 05:01 Order name: COVID-19/FLU A+B 09/23 05:54 Order name: Protime (+INR); Complete Time: 05:54 EDMS 09/23 05:56 Order name: CBC with Automated Diff EDMS 09/23 06:06 Order name: Basic Metabolic Panel; Complete Time: 06:09 EDMS 09/23 06:06 Order name: Liver (Hepatic) Function; Complete Time: 06:09 EDMS 09/23 06:06 Order name: Troponin High Sensitivity; Complete Time: 06:09 EDTX 09/23 04:49 Order name: XRAY Chest (1 view) [facility] 09/23 04:49 Order name: CT Head Brain wo Cont 09/23 04:49 Order name: US Carotid Artery Bilateral 09/23 06:06 Order name: NT PRO-BNP; Complete Time: 06:09 EDMS 09/23 06:06 Order name: Magnesium; Complete Time: 06:09 EDMS 09/23 06:06 Order name: Lipase; Complete Time: 06:09 EDMS 09/23 06:10 Order name: Urine Microscopic Only [facility] 09/23 06:23 Order name: Urine Dipstick-Ancillary; Complete Time: 06:31 EDMS 09/23 06:27 Order name: Urine Microscopic Only; Complete Time: 06:31 EDMS 09/23 06:38 Order name: COVID-19/FLU A+B EDTX 09/23 04:49 Order name: EKG; Complete Time: 04:50 [facility] 09/23 04:49 Order name: Cardiac monitoring; Complete Time: 05:37 [facility] 09/23 04:49 Order name: EKG - Nurse/Tech; Complete Time: 05:37 [facility] 09/23 04:49 Order name: IV Saline Lock; Complete Time: 05:37 [facility] 09/23 04:49 Order name: Labs collected and sent; Complete Time: 05:38 [facility] 09/23 04:49 Order name: O2 Per Protocol; Complete Time: 05:38 [facility] 09/23 04:49 Order name: O2 Sat Monitoring; Complete Time: 05:38 [facility] 09/23 04:49 Order name: Urine Dipstick-Ancillary (obtain specimen); Complete Time: 06:25 [facility] 09/23 06:33 Order name: Misc. Order: FINISH FLUIDS BEFORE DISPO; Complete Time: 06:38 [facility] EC:25 Rate is 62 beats/min. Rhythm is regular. QRS [place] is Normal. NE interval is normal. QRS pati interval is normal. QT interval is normal. No Q waves. T waves are Normal. No ST changes noted. Clinical impression: NSR w/ Non-specific ST/T Changes and No evidence of ischemia. Interpreted by me. Reviewed by me. Administered Medications: 06:00 Drug: NS 0.9% 500 ml Route: IV; Rate: bolus; Site: right antecubital; vc1 06:00 Drug: NS 0.9% 1000 ml Route: IV; Rate: 125 ml/hr; Site: right antecubital; vc1 06:00 Drug: Zofran (Ondansetron) 8 mg Route: IVP; Site: right antecubital; vc1 06:00 Drug: Meclizine 50 mg Route: PO; vc1 07:02 Drug: Decadron - Dexamethasone 10 mg Route: IVP; Site: right antecubital; ll3 07:03 Drug: Pepcid (famotidine) 40 mg Route: PO; ll3 07:03 Drug: Aspirin Chewable Tablet 81 mg Route: PO; ll3 Disposition Summary: 09/23/22 06:32 Discharge Ordered Location: Home pati Problem: new pati Symptoms: have improved pati Condition: Stable pati Diagnosis - Nausea with vomiting, unspecified pati - Dizziness and giddiness pati - Coronavirus infection, unspecified pati - SARS-associated coronavirus as the cause of diseases classified elsewhere pati Followup: pati - With: Private Physician - When: 2 - 3 days - Reason: Recheck today's complaints, Continuance of care, Re-evaluation by your physician Followup: pati - With: - When: 2 - 3 days - Reason: Recheck today's complaints, Continuance of care, Re-evaluation by your physician Discharge Instructions: - Discharge Summary Sheet pati - Dizziness pati - Nausea and Vomiting, Adult pati - Nausea, Adult pati - Dizziness, [id number] pati - Aspirin and Your Heart pati - COVID-19 [facility] Forms: - Medication Reconciliation Form pati - Thank You Letter pati - Antibiotic Education pati - Prescription Opioid Use pati - Work release form ll3 Prescriptions: - Zofran 4 mg Oral Tablet - take 1 tablet by ORAL route every 12 hours As needed; 20 tablet; Refills: 0, [facility] Product Selection Permitted - promethazine 25 mg Oral Tablet - take 1 tablet by ORAL route every 6 hours As needed; 20 tablet; Refills: 0, [facility] Product Selection Permitted - Meclizine 25 mg Oral Tablet - take 1 tablet by ORAL route every 8 hours As needed; 30 tablet; Refills: 0, [facility] Product Selection Permitted - Pepcid 20 mg Oral Tablet - take 1 tablet by ORAL route every 12 hours for 21 days; 42 tablet; Refills: 0, pati Product Selection Permitted - dexamethasone 2 mg Oral tablet - take 1 tablet by ORAL route 2 times per day; 10 tablet; Refills: 0, Product pati Selection Permitted NIH Stroke Scale - NIH Stroke Score Date: 09/23/2022 Time: 06:08 Total Score = 0 1a. Level of Consciousness (LOC) - 0(Alert) 1b. Level of Consciousness (LOC) (Month \T\ Age) - 0(Both) 1c. LOC Commands (Open \T\ Closes Eyes/Wire Splicer) - 0(Both) 2. Best Gaze (Lateral Gaze Paresis) - 0(Normal) 3. Visual Field Loss - 0(No visual loss) 4. Facial Palsy - 0(Normal) 5a. Left Arm: Motor (10-second hold) - 0(No drift) 5b. Right Arm: Motor (10-second hold) - 0(No drift) 6a. Left Leg: Motor (5-second hold - always test supine) - 0(No drift) 6b. Right Leg: Motor (5-second hold - always test supine) - 0(No drift) 7. Limb Ataxia (finger/nose \T\ heel/wolff - test with eyes open) - 0(Absent) 8. Sensory Loss (pinprick arms/legs/face) - 0(Normal) 9. Best Language: Aphasia (description/naming/reading) - 0(No aphasia) 10. Dysarthria (speech clarity - read or repeat words) - 0(Normal) 11. Extinction and Inattention (visual/tactile/auditory/spatial/personal) - 0(No abnormality) Initials: [facility] Signatures: Dispatcher [employer] EDKishor Last MD MD cha Gibson, Lacie RN RN lg3 Samuel Bee, RN RN ll3 Gabi Pacheco RN RN vc1
[2022-09-23 06:37] LABS: SARS-COV-2 RT PCR POSITIVE (NEGATIVE)
[2022-09-23] MEDS ORDERED: ASPIRIN 81 MG CHEWABLE TABLET ONE (06:55)
[2022-09-23] MEDS ORDERED: FAMOTIDINE 20 MG/2 ML VIAL IV ONE (06:56)
[2022-09-23] MEDS ORDERED: dexAMETHasone 10 MG/ML VIAL ONE (06:56)
[2022-09-23 07:13] VITALS: BP 111/76; TEMP 98.1; O2SAT 98
[2022-09-23 08:05] LABS: Blood Morphology Comment NOT SEEN (NOT SEEN); Platelet Estimate ADEQ
--- NOTE | 2022-09-23 13:02 | RAD REPORT ---
EXAM DESCRIPTION: US - Carotid Artery Bilateral - 09/23/2022 5:49 am CLINICAL HISTORY: Dizziness. COMPARISON: No prior studies are available for comparison. TECHNIQUE: A carotid duplex ultrasonogram was performed by obtaining whiting-scale, color Doppler, and power Doppler images of the common, internal, and external carotid arteries bilaterally as well as th e vertebral arteries. FINDINGS: Duplex doppler sonogram of the common, internal, and external carotid arteries reveals mil d intimal thickening. The right internal carotid artery peak systolic velocity is 61 cm/sec. The left internal carotid artery peak systolic velocity is 89 cm/sec. Ratio of internal to common carotid artery peak systolic velocities are also normal and measure 1.1 o n the right and 1.4 on the left. Both vertebral arteries demonstrate antegrade flow. IMPRESSION: 1. Less than 50% stenosis of the cervical internal carotid arteries by velocity criteria . 2. Antegrade flow in both vertebral arteries. Reference Table: Stenosis: 0-50% 50-69% >70% >95% Peak SV (cm/s): <125 125-230 >230 May be decreased ICA/CCA ratio: <2 >2-4 >4 Da mpened CCA *John EG, Too CB, Endy GL, et al. Carotid artery stenosis: whiting-scale and Doppler US diagnosis\X 2014\Society of Radiologists in Ultrasound Consensus Conference. Radiology 2003; [id number]. Electronically signed by: Dutch Handley 09/23/2022 5:58 AM SHREDDER TENDER PEAT Due to temporary technical issues with the PACS/Fluency reporting system, reports are being signed by the in house radiologists without review as a courtesy to insure prompt reporting. The interpreting radiologist is fully responsible for the content of the report.
--- NOTE | 2022-09-23 13:47 | RAD REPORT ---
EXAM DESCRIPTION: RAD - Chest Single View - 09/23/2022 5:07 am CLINICAL HISTORY: COUGH COMPARISON: 04/23/2020 FINDINGS: Single frontal radiograph view of the chest. Cardiomediastinal silhouette: Normal size and contour. Lungs: No consolidation, pneumothorax, or pleural effusion. Bones: No acute osseous abnormality. Upper abdomen: No abnormality identified. IMPRESSION: 1. No acute pulmonary process identified. Electronically signed by: Dutch Handley 09/23/2022 5:55 AM SALES REPRESENTATIVE TRAINEE Due to temporary technical issues with the PACS/Fluency reporting system, reports are being signed by the in house radiologists without review as a courtesy to insure prompt reporting. The interpreting radiologist is fully responsible for the content of the report.
--- NOTE | 2022-09-23 13:49 | RAD REPORT ---
EXAM DESCRIPTION: CT - Head Brain Wo Cont - 09/23/2022 6:43 am CLINICAL HISTORY: DIZZINESS COMPARISON: None available TECHNIQUE: Axial CT of the head obtained from the skull apex to the skull base without contrast. Thi s exam was performed according to our departmental dose-optimization program, which includes automate d exposure control, adjustment of the mA and/or kV according to patient size and/or use of iterative reconstruction technique. FINDINGS: No acute intracranial hemorrhage identified. No mass, mass effect, shift of the midline, a bnormal extra-axial fluid collection or CT evidence of acute ischemic change identified. The ventricu lar system is unremarkable. No acute abnormalities of the supratentorial white matter, basal gangli a, cerebellum, or brainstem. The visualized paranasal sinuses and the mastoid air cells are relatively well aerated. No skull fr acture identified. Visualized orbits and globes are unremarkable. IMPRESSION: 1. No acute intracranial abnormality identified. Electronically signed by: Dutch Handley 09/23/2022 6:00 AM MANAGEMENT ANALYST Due to temporary technical issues with the PACS/Fluency reporting system, reports are being signed by the in house radiologists without review as a courtesy to insure prompt reporting. The interpreting radiologist is fully responsible for the content of the report.
--- NOTE | 2022-09-23 17:09 | EKG ---
Test Date: 2022-09-23 Test Time: 05:23:08 Business Development Professional: JAZMYNE MEASUREMENT RESULTS: Intervals: Rate: 62 [place]: 144 QRSD: 84 QT: 426 QTc: 432 [place]: P: 87 [place]: 144 QRS: 59 T: 73 INTERPRETIVE STATEMENTS: Normal sinus rhythm Right atrial enlargement Borderline ECG Compared to ECG 04/23/2020 23:01:00 Atrial abnormality now present Electronically Signed On 09-23-22 17:08:06 [employer]BLE CUTTER by Joss Cruz
== END 2022-09-23 07:07 | disposition home or self-care (01) ==
LOC: ER 04:44
DX: U07.1 COVID-19 (principal); R42 Dizziness and giddiness
CPT/HCPCS: 0240U; 36415; 70450; 71045; 80048; 80076; 81003; 81015; 83690; 83735; 83880; 84484; 85025; 85610; 93005; 93880; J1100; J2405; J7030; J7040; J8597